=== PATIENT | female | born 1935 | race Caucasian/White ===

== ENCOUNTER 2020-04-30 10:52 | Observation (INO) | payer MEDICARE, BC ==
[~2020-04-30] VITALS: Ht 170 cm; Wt 54.0 kg
--- NOTE | 2020-04-30 12:09 | ED General ---
General Stated Complaint: CAN'T SWALLOW/TALK Source of Information: Family Exam Limitations: No Limitations History of Present Illness Date Seen by Provider: Apr 30, 2020 Time Seen by Provider: 12:08 Initial Comments To ER by private vehicle from home with reports of going to bed last night seemingly normal and awakening this morning refusing to talk or swallow her pills. No fevers or chills. She is on quarantine for exposure to her sister on 04/23. Sister was positive for Covid. According to the she is typically more alert, ambulates with a walker. He states that she seems to be leaning towards the left for the past several days. Timing/Duration: 12-24 Hours Severity: Moderate Associated Systoms: Denies Symptoms Allergies and Home Medications Allergies Coded Allergies: codeine (Verified Allergy, Unknown, 04/30/20) egg (Verified Allergy, Unknown, 04/30/20) Patient Home Medication List Home Medication List Reviewed: Yes Review of Systems Review of Systems Constitutional: see HPI EENTM: see HPI Respiratory: no symptoms reported Cardiovascular: no symptoms reported Genitourinary: no symptoms reported Musculoskeletal: no symptoms reported Skin: no symptoms reported Psychiatric/Neurological: No Symptoms Reported Hematologic/Lymphatic: No Symptoms Reported Immunological/Allergic: no symptoms reported Physical Exam Vital Signs Vital Signs - First Documented 04/30/20 11:40 Temp 36.6 Pulse 88 Resp 16 B/P (MAP) 185/100 (128) Pulse Ox 95 O2 Delivery Room Air Capillary Refill : Height, Weight, BMI Height: '" Weight: lbs. oz. kg; BMI Method: General Appearance: No Apparent Distress, WD/WN, Other (Alert but thin cachectic and frail. She moves all extremities when instructed to do so. She mumbles when asked a question.) Eyes: Bilateral Eye Normal Inspection, Bilateral Eye PERRL HEENT: PERRL/EOMI, TMs Normal Respiratory: No Accessory Muscle Use, No Respiratory Distress Cardiovascular: Regular Rate, Rhythm, Normal Peripheral Pulses Gastrointestinal: Normal Bowel Sounds, Non Tender, Soft Extremity: Normal Capillary Refill, Normal Inspection Neurologic/Psychiatric: Alert, Oriented x3 Skin: Normal Color, Warm/Dry Comments +1 pitting edema of the feet Focused Exam Lactate Level 04/30/20 11:50: Lactic Acid Level 0.99 Lactic Acid Level Laboratory Tests Test 04/30/20 11:50 Lactic Acid Level 0.99 MMOL/L (0.50-2.00) Progress/Results/Core Measures Suspected Sepsis SIRS Temperature: Pulse: Respiratory Rate: Laboratory Tests 04/30/20 11:50: White Blood Count 4.6 Blood Pressure / Mean: 04/30/20 11:50: Lactic Acid Level 0.99 Laboratory Tests 04/30/20 11:50: Creatinine 0.79, Platelet Count 265, Total Bilirubin 0.3 Results/Orders Lab Results Laboratory Tests Test 04/30/20 11:50 04/30/20 12:00 Range/Units White Blood Count 4.6 4.3-11.0 10^3/uL Red Blood Count 3.84 3.80-5.11 10^6/uL Hemoglobin 11.3 L 11.5-16.0 g/dL Hematocrit 36 35-52 % Mean Corpuscular Volume 94 80-99 fL Mean Corpuscular Hemoglobin 29 25-34 pg Mean Corpuscular Hemoglobin Concent 31 L 32-36 g/dL Red Cell Distribution Width 14.6 H 10.0-14.5 % Platelet Count 265 130-400 10^3/uL Mean Platelet Volume 10.2 9.0-12.2 fL Immature Granulocyte % (Auto) 0 % Neutrophils (%) (Auto) 65 42-75 % Lymphocytes (%) (Auto) 27 12-44 % Monocytes (%) (Auto) 7 0-12 % Eosinophils (%) (Auto) 1 0-10 % Basophils (%) (Auto) 0 0-10 % Neutrophils # (Auto) 3.0 1.8-7.8 10^3/uL Lymphocytes # (Auto) 1.2 1.0-4.0 10^3/uL Monocytes # (Auto) 0.3 0.0-1.0 10^3/uL Eosinophils # (Auto) 0.0 0.0-0.3 10^3/uL Basophils # (Auto) 0.0 0.0-0.1 10^3/uL Immature Granulocyte # (Auto) 0.0 0.0-0.1 10^3/uL Sodium Level 142 135-145 MMOL/L Potassium Level 4.8 3.6-5.0 MMOL/L Chloride Level 108 H 98-107 MMOL/L Carbon Dioxide Level 23 21-32 MMOL/L Anion Gap 11 5-14 MMOL/L Blood Urea Nitrogen 17 7-18 MG/DL Creatinine 0.79 0.60-1.30 MG/DL Estimat Glomerular Filtration Rate > 60 BUN/Creatinine Ratio 22 Glucose Level 106 H 70-105 MG/DL Lactic Acid Level 0.99 0.50-2.00 MMOL/L Calcium Level 9.1 8.5-10.1 MG/DL Corrected Calcium 9.1 8.5-10.1 MG/DL Total Bilirubin 0.3 0.1-1.0 MG/DL Aspartate Amino Transf (AST/SGOT) 21 5-34 U/L Alanine Aminotransferase (ALT/SGPT) 7 0-55 U/L Alkaline Phosphatase 85 40-136 U/L Total Protein 6.9 6.4-8.2 GM/DL Albumin 4.0 3.2-4.5 GM/DL Procalcitonin 0.06 <0.10 NG/ML Thyroid Stimulating Hormone (TSH) 0.44 0.35-4.94 UIU/ML Free Thyroxine 0.87 0.70-1.48 NG/DL Urine Color YELLOW Urine Clarity CLEAR Urine pH 7.0 5-9 Urine Specific [place] 1.010 L 1.016-1.022 Urine Protein NEGATIVE NEGATIVE Urine Glucose (UA) NEGATIVE NEGATIVE Urine Ketones TRACE H NEGATIVE Urine Nitrite NEGATIVE NEGATIVE Urine Bilirubin NEGATIVE NEGATIVE Urine Urobilinogen 0.2 < = 1.0 MG/DL Urine Leukocyte Esterase NEGATIVE NEGATIVE Urine RBC (Auto) NEGATIVE NEGATIVE Urine RBC NONE /HPF Urine WBC 2-5 /HPF Urine Squamous Epithelial Cells 0-2 /HPF Urine Crystals NONE /LPF Urine Bacteria MODERATE H /HPF Urine Casts NONE /LPF Urine Mucus NEGATIVE /LPF Urine Culture Indicated NO Coronavirus 2019 (RA) Positive H Negative Micro Results Microbiology 04/30/20 Influenza Types A,B Antigen (GABRIELA) - Final, Complete My Orders Orders - MARINE LOO LEGAL PROCESS SPECIALIST Cbc With Automated Diff (04/30/20 12:06) Comprehensive Metabolic Panel (04/30/20 12:06) Ct Head Wo (04/30/20 12:06) Chest 1 View, Ap/Pa Only (04/30/20 12:06) Ua Culture If Indicated (04/30/20 12:06) Garcia Cath (04/30/20 12:06) Influenza A And B Antigens (04/30/20 12:06) Covid 19 Inhouse Test (04/30/20 12:06) Ed Iv/Invasive Line Start (04/30/20 12:06) Blood Culture (04/30/20 12:09) Lactic Acid Analyzer (04/30/20 12:09) Procalcitonin (Pct) (04/30/20 12:09) Thyroid Stimulating Hormone (04/30/20 12:22) Free T4 (Free Thyroxine) (04/30/20 12:22) Vital Signs/I&O 04/30/20 11:40 Temp 36.6 Pulse 88 Resp 16 B/P (MAP) 185/100 (128) Pulse Ox 95 O2 Delivery Room Air Capillary Refill : Departure Communication (Admissions) Time/Spoke to Admitting Phy: 13:[address] Stevenson, we will admit, patient does not qualify for remdesivir, convalescent plasma or dexamethasone. She is admitted simply for being so weak and frail. Discussed CODE STATUS with the . Asked if he wanted CPR and ventilator done if her heart stops. He states only a CPR but no ventilator. I discussed with him that CPR was pointless without oxygenation and ventilation. He states he would like to make her full code then. Impression Primary Impression: General weakness Additional Impression: COVID-19 Disposition: 09 ADMITTED INPATIENT Condition: Stable Admissions Decision to Admit Reason: Admit from ER (General) Decision to Admit/Date: Apr 30, 2020 Time/Decision to Admit Time: 13:23 MARINE LOO APRN Apr 30, 2020 12:09
[2020-04-30 12:16] LABS: BILIRUBIN,URINE NEGATIVE (NEGATIVE); CLARITY,URINE CLEAR; COLOR,URINE YELLOW; GLUCOSE, URINE (UA) NEGATIVE (NEGATIVE); KETONES,URINE TRACE (NEGATIVE); LEUKOCYTE ESTERASE ,URINE NEGATIVE (NEGATIVE); NITRITE,URINE NEGATIVE (NEGATIVE); PROTEIN,URINE NEGATIVE (NEGATIVE)
[2020-04-30 12:16] LABS: BASOPHILS % (AUTO) 0 % (0-10); EOSINOPHILS % (AUTO) 1 % (0-10); HEMATOCRIT 36 % (35-52); HEMOGLOBIN 11.3 g/dL (11.5-16.0); LYMPHOCYTES # (AUTO) 1.2 10^3/uL (1.0-4.0); LYMPHOCYTES % (AUTO) 27 % (12-44); MEAN CORPUSCULAR HEMOGLOBIN 29 pg (25-34); MEAN CORPUSCULAR HGB CONC 31 g/dL (32-36); MEAN CORPUSCULAR VOLUME 94 fL (80-99); MEAN PLATELET VOLUME 10.2 fL (9.0-12.2); MONOCYTES # (AUTO) 0.3 10^3/uL (0.0-1.0); MONOCYTES % (AUTO) 7 % (0-12); NEUTROPHILS % (AUTO) 65 % (42-75); PLATELET COUNT 265 10^3/uL (130-400); WHITE BLOOD COUNT 4.6 10^3/uL (4.3-11.0)
[2020-04-30 12:23] LABS: BACTERIA,URINE MODERATE /HPF; SQUAMOUS EPITHELIAL CELL,UR 0-2 /HPF
[2020-04-30 12:24] LABS: CHLORIDE 108 MMOL/L (98-107); POTASSIUM 4.8 MMOL/L (3.6-5.0); SODIUM 142 MMOL/L (135-145)
[2020-04-30 12:25] LABS: CALCIUM 9.1 MG/DL (8.5-10.1)
[2020-04-30 12:26] LABS: GLUCOSE 106 MG/DL (70-105); TOTAL PROTEIN 6.9 GM/DL (6.4-8.2)
[2020-04-30 12:27] LABS: CARBON DIOXIDE 23 MMOL/L (21-32)
[2020-04-30 12:28] LABS: BILIRUBIN,TOTAL 0.3 MG/DL (0.1-1.0)
--- NOTE | 2020-04-30 12:28 | NUR ---
TALKED WITH PT'S WHO STATES SHE IS NORMALLY MORE ALERT ET HAS TO WALK WITH A WALKER AND HAS BEEN LEANING TOWARDS THE LEFT FOR SEVERAL DAYS.
[2020-04-30 12:29] LABS: ALKALINE PHOSPHATASE 85 U/L (40-136)
[2020-04-30 12:30] LABS: CREATININE SERUM 0.79 MG/DL (0.60-1.30); GFR ESTIMATED > 60
[2020-04-30 12:31] LABS: BUN/CREATININE RATIO 22
[2020-04-30 12:33] LABS: ALANINE AMINOTRANSFERASE 7 U/L (0-55)
--- NOTE | 2020-04-30 12:38 | Diagnostic Imaging Report ---
INDICATION: weakness COMPARISON: None. FINDINGS: Single frontal view of the chest demonstrates normal heart size and pulmonary vascularity. The lungs are well aerated and clear. Calcified granuloma is noted within the lateral right upper lung. No large pleural effusion or pneumothorax is seen. The visualized osseous structures show no acute abnormalities. There is calcified aortic atherosclerosis. Neurostimulator device is also noted. IMPRESSION: 1. No acute cardiopulmonary process. Dictated by: Dictated on workstation # [id number]
[2020-04-30 12:56] LABS: FREE T4 (FREE THYROXINE) 0.87 NG/DL (0.70-1.48)
--- NOTE | 2020-04-30 13:14 | Diagnostic Imaging Report ---
PROCEDURE: CT head without contrast. TECHNIQUE: Multiple contiguous axial images were obtained through the brain without the use of intravenous contrast. Auto Exposure Controls were utilized during the CT exam to meet ALARA standards for radiation dose reduction. DATE: April 30, 2020. COMPARISON: None. INDICATION: 84-year-old female, weakness. Cannot talk or swallow. The patient has Covid 19 infection. FINDINGS: There is mild proportional prominence of the ventricles and additional CSF spaces consistent with mild cerebral volume loss. There is a focal area of CSF-like attenuation in the right frontal lobe subcortical white matter on axial image 41 most likely relating to a remote prior lacunar infarct. There is no mass effect or midline shift. There is no acute intracranial hemorrhage. There is no abnormal extra-axial fluid collection. The visualized portions of the paranasal sinuses, mastoid air cells and middle ears are well aerated. IMPRESSION: 1. No CT apparent acute intracranial abnormality. Further evaluation with MRI brain may be of benefit as indicated clinically. 2. Mild cerebral volume loss with probable remote prior lacunar infarct involving the right frontal lobe subcortical white matter. Dictated by: Dictated on workstation # [id number]
--- NOTE | 2020-04-30 13:58 | NUR ---
ATTEMPT TO CALL REPORT ET ROOM HAS NOT BEEN CLEANED AND THEY WOULD LIKE TO WAIT FOR REPORT.
--- NOTE | 2020-04-30 14:38 | NUR ---
aGston wang in [facility] - 04/30/20 at 1438 by SIM RESTING IN BED.
--- NOTE | 2020-04-30 14:45 | NUR ---
RESTING IN BED WITH EYES OPEN. MORE TALKATIVE ET ASKING ABOUT HER . DENIES NEEDS AT THIS TIME.
[2020-04-30] MEDS ORDERED: CATHETER FLUSH 10 ML SYR IV PRN (15:45)
[2020-04-30] MEDS: ENOXAPARIN 30 MG/0.3 ML (LOVENOX) SYR SC SCH (16:14)
[2020-04-30] MEDS: LACTATED RINGERS 1,000 ML IV SCH (16:14)
[2020-04-30 16:55] VITALS: BP 204/99
[2020-04-30] MEDS ORDERED: hydrALAZINE (APESOLINE) 20 MG/ML VIAL IV NR (17:00)
[2020-04-30] MEDS ORDERED: RASA1TAB4 PO (17:38)
[2020-04-30] MEDS ORDERED: SIMV20TA26 PO (17:53)
[2020-04-30] MEDS ORDERED: ACHD5005 PO (17:53)
[2020-04-30] MEDS ORDERED: CARB1TAB22 PO (17:53)
[2020-04-30] MEDS ORDERED: BUME1TAB8 PO (17:53)
[2020-04-30] MEDS ORDERED: GLYC1.5T4 PO (17:53)
[2020-04-30] MEDS ORDERED: FLUO20TA28 PO (17:53)
[2020-04-30] MEDS ORDERED: TRAM50TA3 PO (17:53)
[2020-04-30] MEDS ORDERED: LISI10TA2 PO (17:53)
[2020-04-30] MEDS ORDERED: ROPI3TAB4 PO (17:53)
[2020-04-30] MEDS ORDERED: TOPI25TA10 PO (17:53)
[2020-04-30 20:30] VITALS: BP 179/83
[2020-05-01] VITALS (8 sets, daily range): BP systolic 157–195; BP diastolic 72–91
--- NOTE | 2020-05-01 00:06 | NUR ---
Dr. Hernandez notified of bp at 195/90 with hr 96. New order rec to give Hydralazine 10mg IV x 1 dose now and then monitor - to address in AM.
[2020-05-01] MEDS ORDERED: hydrALAZINE (APESOLINE) 20 MG/ML VIAL IV ONE (00:15)
[2020-05-01] MEDS: LACTATED RINGERS 1,000 ML IV SCH ×3 (02:08→21:19)
[2020-05-01 05:43] LABS: BASOPHILS % (AUTO) 0 % (0-10); EOSINOPHILS % (AUTO) 0 % (0-10); HEMATOCRIT 34 % (35-52); LYMPHOCYTES # (AUTO) 0.7 10^3/uL (1.0-4.0); LYMPHOCYTES % (AUTO) 17 % (12-44); MEAN CORPUSCULAR HEMOGLOBIN 30 pg (25-34); MEAN CORPUSCULAR HGB CONC 33 g/dL (32-36); MEAN CORPUSCULAR VOLUME 91 fL (80-99); MEAN PLATELET VOLUME 10.1 fL (9.0-12.2); MONOCYTES # (AUTO) 0.3 10^3/uL (0.0-1.0); MONOCYTES % (AUTO) 8 % (0-12); NEUTROPHILS # (AUTO) 3.2 10^3/uL (1.8-7.8); NEUTROPHILS % (AUTO) 76 % (42-75); PLATELET COUNT 243 10^3/uL (130-400); WHITE BLOOD COUNT 4.2 10^3/uL (4.3-11.0)
[2020-05-01 05:54] LABS: ALBUMIN 3.8 GM/DL (3.2-4.5)
[2020-05-01 05:55] LABS: CHLORIDE 109 MMOL/L (98-107); POTASSIUM 3.8 MMOL/L (3.6-5.0); SODIUM 141 MMOL/L (135-145)
[2020-05-01 05:56] LABS: CALCIUM 8.8 MG/DL (8.5-10.1)
[2020-05-01 05:57] LABS: GLUCOSE 112 MG/DL (70-105); TOTAL PROTEIN 6.2 GM/DL (6.4-8.2)
[2020-05-01 05:58] LABS: CARBON DIOXIDE 21 MMOL/L (21-32)
[2020-05-01 05:59] LABS: BILIRUBIN,TOTAL 0.4 MG/DL (0.1-1.0)
[2020-05-01 06:00] LABS: ALKALINE PHOSPHATASE 84 U/L (40-136)
[2020-05-01 06:01] LABS: GFR ESTIMATED > 60
[2020-05-01 06:02] LABS: BUN/CREATININE RATIO 19
[2020-05-01 06:04] LABS: ALANINE AMINOTRANSFERASE 14 U/L (0-55)
[2020-05-01] MEDS ORDERED: lisINopril 10 MG (PRINIVIL) TABLET ONE (11:21)
[2020-05-01] MEDS: lisINopril 10 MG (PRINIVIL) TABLET PO SCH (11:25)
[2020-05-01] MEDS ORDERED: RASA0.5T PO (11:42)
[2020-05-01] MEDS ORDERED: GLYCOPYRROLATE PO (11:42)
[2020-05-01] MEDS ORDERED: AMAN100C18 PO (11:42)
[2020-05-01] MEDS ORDERED: POLY17PO6 PO (11:44)
[2020-05-01] MEDS ORDERED: PYRI50TA PO (11:44)
[2020-05-01] MEDS ORDERED: LOPE2CAP PO (11:44)
[2020-05-01] MEDS ORDERED: CYAN25003 SL (11:44)
--- NOTE | 2020-05-01 11:47 | NUR ---
UNABLE TO SPEAK WITH THE PT- I DID CALL HER (DORA) AND GOT A MEDICATION LIST FROM [facility] TO COMPLETE THE MED REC THERE WAS A MEDICATION LIST ON THE PTS CHART (HOWEVER IT IS NOT UP TO DATE) AND MOST OF HER HOME MEDS ARE IN HER ROOM ALSO. FLUOXETINE 20MG AND BUMETANIDE 1MG ARE NOT ON THE PTS MED LIST HOWEVER SHE IS TAKING AMANTADINE 100MG WAS LAST FILLED 02-24-2020 #60/30DS- WHEN I SPOKE WITH DORA HE LET ME KNOW THE PT IS PRESCRIBED THIS MED AND SHE RECENTLY RAN OUT OF PILLS- AND DUE TO QUARANTINE THEY HAVE NOT BEEN ABLE TO [facility] DIRECTOR A REFILL FROM THE PHARMACY THE MED LIST HAS THE FOLLOWING OTC'S LISTED BUT DORA THOUGHT THE PT MAY HAVE QUIT TAKING THEM WHEN GOT SICK: LOPERAMIDE 2MG MIRALAX VIT B-12 VIT B-6 Addendum: 05/01/20 at 1159 by HEIDI AVELAR CPhT THE FOLLOWING ARE FILL DATES FROM [facility]: 11-18-2019 TRAMADOL 50MG #180 01-17-2020 SIMVASTATIN 20MG #90/90DS 02-17-2020 LISINOPRIL 10MG #90/90DS 02-24-2020 AMANTADINE 100MG #60/30DS- PAST DUE FILL DATE IS ON THE MED REC 03-02-2020 BUMETANIDE 1MG #30/30DS- PAST DUE FILL DATE IS ON THE MED REC 03-09-2020 HYDROCODONE/APAP 5/325MG #120 03-15-2020 ROPINIROLE 3MG #90/30DS 04-14-2020 FLUOXETINE 20MG #30/30DS 04-14-2020 TOPIRAMATE 25MG #30/30DS 04-14-2020 RASAGILINE 0.5MG #90/90DS 04-14-2020 GLYCOPYRROLATE 1MG #60/30DS 04-14-2020 CARB/LEVO 25/250MG #240/30DS
--- NOTE | 2020-05-01 12:20 | History & Physical ---
HPI History of Present Illness: 84 yo F that presented with increasing weakness and confusion found to have COVID-19. states that at baseline she walks, talks and feeds herself. He noticed that she was not wanting to eat or get out of bed and started to get concerned. She woke up and did not want to take her pills. She did have a recent exposure with her sister and is currently on quarantine. No fever or chills. Normal breathing. Will shake head to answer questions but will not verbalize answers. Source: patient, spouse Exam Limitations: clinical condition Date seen by provider: May 01, 2020 Time Seen by Provider: 10:15 Attending Physician Scotty Trevizo MD PCP [facility] Consult Date of Admission Apr 30, 2020 at 12:59 Home Medications Home Medications Reviewed patient Home Medication Reconciliation performed by pharmacy medication reconciliations prepress technician and/or nursing. Patients Allergies have been reviewed. Allergies Coded Allergies: codeine (Verified Allergy, Unknown, 04/30/20) egg (Verified Allergy, Unknown, 04/30/20) [id number] Hx Patient Social History Recent Foreign Travel: No Contact w/other who traveled: No Recent Infectious Disease Expo: No Past Medical History HTN Nathan's Chronic pain Review of Systems ([facility]) Constitutional: no symptoms reported; No chills, No fever EENTM: no symptoms reported; No nose congestion, No nose pain, No throat pain Respiratory: no symptoms reported; No cough, No dyspnea on exertion, No short of breath Cardiovascular: no symptoms reported; No chest pain, No edema Gastrointestinal: no symptoms reported; No abdominal pain, No constipation, No nausea, No vomiting Genitourinary: no symptoms reported; No dysuria, No frequency, No hematuria : No Musculoskeletal: no symptoms reported; No back pain, No joint pain, No muscle pain Skin: no symptoms reported Psychiatric/Neurological: No Symptoms Reported Reviewed Test Results Reviewed Test Results Lab Laboratory Tests Test 05/01/20 05:14 05/01/20 05:21 Range/Units Sodium Level 141 135-145 MMOL/L Potassium Level 3.8 3.6-5.0 MMOL/L Chloride Level 109 H 98-107 MMOL/L Carbon Dioxide Level 21 21-32 MMOL/L Anion Gap 11 5-14 MMOL/L Blood Urea Nitrogen 13 7-18 MG/DL Creatinine 0.70 0.60-1.30 MG/DL Estimat Glomerular Filtration Rate > 60 BUN/Creatinine Ratio 19 Glucose Level 112 H 70-105 MG/DL Calcium Level 8.8 8.5-10.1 MG/DL Corrected Calcium 9.0 8.5-10.1 MG/DL Total Bilirubin 0.4 0.1-1.0 MG/DL Aspartate Amino Transf (AST/SGOT) 15 5-34 U/L Alanine Aminotransferase (ALT/SGPT) 14 0-55 U/L Alkaline Phosphatase 84 40-136 U/L Total Protein 6.2 L 6.4-8.2 GM/DL Albumin 3.8 3.2-4.5 GM/DL White Blood Count 4.2 L 4.3-11.0 10^3/uL Red Blood Count 3.68 L 3.80-5.11 10^6/uL Hemoglobin 11.0 L 11.5-16.0 g/dL Hematocrit 34 L 35-52 % Mean Corpuscular Volume 91 80-99 fL Mean Corpuscular Hemoglobin 30 25-34 pg Mean Corpuscular Hemoglobin Concent 33 32-36 g/dL Red Cell Distribution Width 14.0 10.0-14.5 % Platelet Count 243 130-400 10^3/uL Mean Platelet Volume 10.1 9.0-12.2 fL Immature Granulocyte % (Auto) 0 % Neutrophils (%) (Auto) 76 H 42-75 % Lymphocytes (%) (Auto) 17 12-44 % Monocytes (%) (Auto) 8 0-12 % Eosinophils (%) (Auto) 0 0-10 % Basophils (%) (Auto) 0 0-10 % Neutrophils # (Auto) 3.2 1.8-7.8 10^3/uL Lymphocytes # (Auto) 0.7 L 1.0-4.0 10^3/uL Monocytes # (Auto) 0.3 0.0-1.0 10^3/uL Eosinophils # (Auto) 0.0 0.0-0.3 10^3/uL Basophils # (Auto) 0.0 0.0-0.1 10^3/uL Immature Granulocyte # (Auto) 0.0 0.0-0.1 10^3/uL Physical Exam-([facility]) Physical Exam Vital Signs VS - Last 72 Hours, by Label 04/30/20 04/30/20 04/30/20 04/30/20 11:40 15:18 16:00 16:55 Temp 36.6 36.5 Pulse 88 87 91 Resp 16 16 16 B/P (MAP) 185/100 (128) 141/29 204/99 Pulse Ox 95 97 98 98 O2 Delivery Room Air Room Air Room Air Room Air 04/30/20 04/30/20 05/01/20 05/01/20 20:00 20:30 00:08 02:16 Temp 36.6 36.5 36.0 Pulse 105 94 100 Resp 18 18 18 B/P (MAP) 179/83 (115) 195/90 (125) 157/72 (100) Pulse Ox 97 97 97 96 O2 Delivery Room Air Room Air Room Air Room Air 05/01/20 05/01/20 05/01/20 05/01/20 04:00 07:47 08:30 11:13 Temp 36.0 36.5 36.6 Pulse 100 99 88 Resp 18 16 16 B/P (MAP) 187/77 (113) 182/86 (118) 193/91 (125) Pulse Ox 99 97 98 O2 Delivery Room Air Room Air Room Air Room Air Capillary Refill : Less Than 3 Seconds General Appearance: no apparent distress, cachetic, thin Neck: non-tender, full range of motion, supple Respiratory: chest non-tender, lungs clear, normal breath sounds, no respiratory distress, no accessory muscle use Cardiovascular: normal peripheral pulses, regular rate, rhythm, no murmur Gastrointestinal: non tender, soft Back: other (severe kyphosis and sciolosis) Extremities: no pedal edema, no calf tenderness, normal capillary refill Neurologic/Psychiatric: alert Skin: normal color, warm/dry Lymphatic: no adenopathy Assessment/Plan Assessment/Plan Admission Status: Observation (1) General weakness Status: Acute Assessment & Plan: - Low appetite, continue to monitor intake, HDS (2) COVID-19 Status: Acute (3) Hypertension Status: Chronic Assessment & Plan: - Restart home meds Qualifiers: Qualified Codes: I10 - Essential (primary) hypertension Clinical Quality Measures DVT/VTE Risk/Contraindication: Risk Factor Score Per Nursin RFS Level Per Nursing on Admit: 2=Moderate SCOTTY TREVIZO MD May 01, 2020 12:20
[2020-05-01] MEDS: rOPINIRole 1 MG (REQUIP) TABLET PO SCH ×2 (13:20→21:18)
[2020-05-01] MEDS: SINEMET 25/250 (CARBIDOPA/LEVODOPA) TAB PO SCH ×3 (13:34→21:19)
--- NOTE | 2020-05-01 13:39 | NUR ---
CM/SS visited with patient for social service consult. CM/SS attempted to contact the patient via room phone. However, no answer. CM/SS contacted the patient's Garcia to discuss discharge planning. He was pleasant and willing. Garcia is adamant that he would like the patient to return home with him and his daughter. His daughter is quarantined at the house with them. CM/SS discussed safety with the patient's but he feels that it would be safe for her to return home. Home: At baseline, the patient had "limited activity" according to Garcia. He states that she would be able to get up with a walker; however, she would let go of the walker and fall. The patient usually just stays in her lift chair. The patient needs assistance with bathing but Garcia reports she can brush her hair, brush teeth, and perform swapna care. Equipment: The patient has a lift chair, shower chair, walker, and toilet seat riser with grab bars. Home Health: Garcia reports that the patient had [facility] in the past and would like to use them again. CM/SS called and made a referral. Informed them that this sw is unsure of discharge date. Supports: The patient's Garcia and Daughter. CM/SS will continue to follow for discharge planning.
--- NOTE | 2020-05-01 14:23 | NUR ---
"RD ASSESSMENT PMHx: HTN; PT INTERACTION: Received dietary consult for MST score. Note pt currently in COVID isolation, per chart review. Note all diet information for consult is per Adrianna RN, or per chart review. Adrianna states current appetite appears poor. Note avg PO intake 25-50% x3meal, per chart review. Adrianna states no issues with nausea, vomiting, constipation, or diarrhea that she is aware of, and according to the pt, their last BM was 04/30. Not pt not currently on bowel regimen per chart review. Note unable to determine recent wt hx, per chart review. Note unable to complete visual assessment d/t isolation precautions. Note BMI of 18.7 (Underweight BMI for age). Given PO intake, no wt hx, and no visual assessment, criteria for malnutrition status per ASPEN guidelines cannot be determined. Est. kcal needs: 6203-4027 kcal | 30-35 kcal/kg Est. Pro needs: 54-64 g Pro | 1.0-1.2 g Pro/kg PES STATEMENT: Inadequate oral intake (NI-2.1) related to loss of appetite, as evidenced by chart review, communication with RN, and avg PO intake 25-50% x1d. INTERVENTION: Continue with current diet order of DYS3 Advanced/Ground Meat diet. Continue with current supplementation order of Ensure Enlive with meals TID, for increased kcal intake. Provides 350 kcal and 20 g Pro per serving. Will continue to follow and reassess as pt needs, intake, and status change. Kevin LOMBARDI, MS RD LD [phone] cell"
[2020-05-01] MEDS: RASAGILINE 0.5 MG PO SCH (15:36)
[2020-05-01] MEDS: ENOXAPARIN 30 MG/0.3 ML (LOVENOX) SYR SC SCH (16:58)
[2020-05-01] MEDS: ACETAMINOPHEN 325 MG TABLET PO PRN (21:17)
[2020-05-01] MEDS: AMANTADINE 100 MG (SYMMETREL) CAP PO SCH (21:20)
[2020-05-02 03:28] VITALS: BP 177/86
[2020-05-02 05:57] LABS: BASOPHILS % (AUTO) 0 % (0-10); EOSINOPHILS % (AUTO) 1 % (0-10); HEMATOCRIT 31 % (35-52); LYMPHOCYTES % (AUTO) 35 % (12-44); MEAN CORPUSCULAR HEMOGLOBIN 29 pg (25-34); MEAN CORPUSCULAR HGB CONC 32 g/dL (32-36); MEAN CORPUSCULAR VOLUME 91 fL (80-99); MEAN PLATELET VOLUME 9.6 fL (9.0-12.2); MONOCYTES # (AUTO) 0.3 10^3/uL (0.0-1.0); MONOCYTES % (AUTO) 11 % (0-12); NEUTROPHILS # (AUTO) 1.5 10^3/uL (1.8-7.8); NEUTROPHILS % (AUTO) 54 % (42-75); PLATELET COUNT 228 10^3/uL (130-400); WHITE BLOOD COUNT 2.8 10^3/uL (4.3-11.0)
[2020-05-02 06:00] LABS: CHLORIDE 109 MMOL/L (98-107); POTASSIUM 3.9 MMOL/L (3.6-5.0); SODIUM 140 MMOL/L (135-145)
[2020-05-02 06:01] LABS: CALCIUM 8.5 MG/DL (8.5-10.1); GLUCOSE 88 MG/DL (70-105)
[2020-05-02 06:03] LABS: CARBON DIOXIDE 22 MMOL/L (21-32)
[2020-05-02 06:05] LABS: CREATININE SERUM 0.61 MG/DL (0.60-1.30); GFR ESTIMATED > 60
[2020-05-02 06:06] LABS: BUN/CREATININE RATIO 26
--- NOTE | 2020-05-02 06:08 | Progress Note - Hospitalist ---
Subjective HPI/CC On Admission Date Seen by Provider: May 02, 2020 Time Seen by Provider: 11:00 Subjective/Events-last exam Patient very frail and weak HLIVF Patient appears end stage status Reviewed meds and labs PT OT IRF referrals [id number] and subtle confusion Garcia cath Review of Systems General: Fatigue, Malaise Focused Exam Lactate Level 04/30/20 11:50: Lactic Acid Level 0.99 Objective Exam Vital Signs Vital Signs Date Time Temp Pulse Resp B/P (MAP) Pulse Ox O2 Delivery O2 Flow Rate FiO2 05/02/20 23:30 36.2 77 16 150/76 (100) 97 Room Air Capillary Refill : Less Than 3 Seconds General Appearance: No Apparent Distress, Chronically ill, Cachetic, Thin Respiratory: Chest Non Tender, Lungs Clear, Normal Breath Sounds, No Accessory Muscle Use, No Respiratory Distress Cardiovascular: Regular Rate, Rhythm, No Edema, No Gallop, No JVD, No Murmur, Normal Peripheral Pulses Neurologic/Psychiatric: Alert, Oriented x3, No Motor/Sensory Deficits, Depressed Affect, Disoriented Results/Procedures Lab Patient resulted labs reviewed. Assessment/Plan Assessment and Plan Assess & Plan/Chief Complaint Assessment: COVID-19 Weakness Cachexia Frail status Confusion Neutropenia Plan: Monitor O2 Increase PO intake Ambulate PT OT IRF Clinical Quality Measures DVT/VTE Risk/Contraindication: Risk Factor Score Per Nursin RFS Level Per Nursing on Admit: 2=Moderate BRENDA DE LA VEGA DO May 02, 2020 06:08
[2020-05-02 07:47] VITALS: BP 162/86
[2020-05-02] MEDS: LACTATED RINGERS 1,000 ML IV SCH ×2 (08:28→17:15)
[2020-05-02] MEDS: SINEMET 25/250 (CARBIDOPA/LEVODOPA) TAB PO SCH ×4 (08:30→20:58)
[2020-05-02] MEDS: BUMETANIDE 1 MG (BUMEX) TAB PO SCH (08:30)
[2020-05-02] MEDS: RASAGILINE 0.5 MG PO SCH (08:30)
[2020-05-02] MEDS: AMANTADINE 100 MG (SYMMETREL) CAP PO SCH ×2 (08:30→20:58)
[2020-05-02] MEDS: rOPINIRole 1 MG (REQUIP) TABLET PO SCH ×3 (08:30→20:59)
[2020-05-02] MEDS: lisINopril 10 MG (PRINIVIL) TABLET PO SCH (08:35)
[2020-05-02] MEDS ORDERED: RASAGILINE MESYLATE 0.5 MG PO SCH (09:00)
--- NOTE | 2020-05-02 13:01 | Physical Therapy Evaluation ---
PT Evaluation-General Medical Diagnosis Admission Date Apr 30, 2020 at 12:59 Medical Diagnosis: weakness, confusion, COVID+ Onset Date: Apr 30, 2020 Therapy Diagnosis Therapy Diagnosis: debility, general weakness Precautions Precautions/Isolations: Contact Isolation, Aspiration, Droplet Isolation Weight Bear Status Right Lower Extremity: Right Full Weight Bearing Left Lower Extremity: Left Full Weight Bearing Referral Physician: Dr. Hernandez Reason for Referral: Evaluation/Treatment Medical History Pertinent Medical History: HTN, Parkinson's Additional Medical History chronic pain Current History Pt. presented with increasing weakness, confusion, COVID+ Reviewed History: Yes Social History Home: Single Level Current Living Status: Spouse Prior Prior Level of Function SCALE: Activities may be completed with or without assistive devices. 1-Lpdqbjcegf-xfdeffx completes the activity by him/herself with no assistance from a helper. 5-Set-up or Clean-up Assistance-helper sets up or cleans up; patient completes activity. [place] assists only prior to or following the activity. 4-Supervision or Touching Assistance-helper provides verbal cues and/or touching/steadying and/or contact guard assistance as patient completes activity. Assistance may be provided throughout the activity or intermittently. 3-Partial/Moderate Assistance-helper does LESS THAN HALF the effort. [place] lifts, holds or supports trunk or limbs, but provides less than half the effort. 2-Substantial/Maximal Assistance-helper does MORE THAN HALF the effort. [place] lifts or holds trunk or limbs and provides more than half the effort. 0-Vptygfvhm-unpwmm does ALL the effort. Patient does none of the effort to complete the activity. Or, the assistance of 2 or more helpers is required for the patient to complete the activity. If activity was not attempted, code reason: 7-Patient Refused. 9-Not Applicable-not attempted and the patient did not perform the activity be fore the current illness, exacerbation or injury. 10-Not Attempted due to Environmental Limitations-(lack of equipment, weather restraints, etc.). 88-Not Attempted due to Medical Conditions or Safety Concerns. Bed Mobility: 6 Transfers (B,C,W/C): 6 Gait: 6 Indoor Mobility (Ambulation): Independent Prior Devices Use: Motorized wheelchair, Walker pt. states she mostly walks around the home with a walker but does have a power chair PT Evaluation-Current Subjective Pt. in bed with nurse aide present for feeding, agrees to sit up in chair. Pt/Family Goals home with spouse Objective Patient Orientation: Person, Confused ROM/Strength ROM Upper Extremities Decreased ROM Lower Extremities WFL Strength Upper Extremities Decreased Strength Lower Extremities Grossly 3+/5 Integumentary/Posture Integumentary see nursing notes Bowel Incontinence: No Bladder Incontinence: Yes Posture kyphotic, narrow KENNETH Neuromuscular (Tone, Coordination, Reflexes) diminished Sensory Vision: Functional Hearing: Functional Sensation Right Upper Extremit: Intact Sensation Left Upper Extremity: Intact Sensation Right Lower Extremit: Intact Sensation Left Lower Extremity: Intact Transfers Sit to Lying (QC): 4 Sit to Stand (QC): 3 Chair/Qlx-tl-Palas Xfer(QC): 3 Gait Does the Patient Walk?: Yes Mode of Locomotion: Walk Anticipated Mode of Locomotion: Walk Distance: 4 ft Gait Assistive Device: FWW Comments/Gait Description Parkinson's gait with narrow, shuffled steps, kyphotic posture Balance Sitting Static: Fair Sitting Dynamic: Fair Standing Static: Poor Standing Dynamic: Poor Assessment/Needs Pt. is an 84 y.o. female with decreased mobility and weakness. Pt. is currently min-mod A with with transfers and was able to ambulate from bed to chair but with poor balance. Pt. would benefit from skilled PT to improve mobility and strength to possibly return home with spouse vs. retirement placement. Rehab Potential: Fair PT Alf Goals Rubberizing Mechanic Goals PT Rubberizing Mechanic Goals Time Frame: May 16, 2020 Roll Left & Right (QC): 6 Sit to Lying (QC): 6 Lying-Sitting on Side/Bed(QC): 6 Sit to Stand (QC): 4 Chair/Fyb-xe-Equyn Xfer(QC): 4 Walk 10 feet (QC): 4 PT Plan Problem List Problem List: Activity Tolerance, Functional Strength, Safety, Balance, Gait, Transfer, Bed Mobility, ROM Treatment/Plan Treatment Plan: Continue Plan of Care Treatment Plan: Bed Mobility, Concurrent Therapy, Education, Functional Activity Merary, Functional Strength, Gait, Safety, Therapeutic Exercise, Transfers Treatment Duration: May 16, 2020 Frequency: 6 times per week Estimated Hrs Per Day: .25 hour per day Patient and/or Family Agrees t: Yes Time/GCodes Time In: 1210 Time Out: 1229 Total Billed Treatment Time: 19 Total Billed Treatment 1, LEROY 19' SPIKE TOMPKINS PT May 02, 2020 13:01
[2020-05-02 16:15] VITALS: BP 160/77
[2020-05-02] MEDS: ENOXAPARIN 30 MG/0.3 ML (LOVENOX) SYR SC SCH (17:14)
[2020-05-02] MEDS: ACETAMINOPHEN 325 MG TABLET PO PRN (20:02)
[2020-05-02 23:30] VITALS: BP 150/76
[2020-05-03] MEDS: ACETAMINOPHEN 325 MG TABLET PO PRN ×2 (06:32→21:23)
[2020-05-03 07:26] LABS: BASOPHILS % (AUTO) 0 % (0-10); EOSINOPHILS % (AUTO) 1 % (0-10); HEMATOCRIT 33 % (35-52); HEMOGLOBIN 10.6 g/dL (11.5-16.0); LYMPHOCYTES # (AUTO) 0.7 10^3/uL (1.0-4.0); LYMPHOCYTES % (AUTO) 20 % (12-44); MEAN CORPUSCULAR HEMOGLOBIN 29 pg (25-34); MEAN CORPUSCULAR HGB CONC 33 g/dL (32-36); MEAN CORPUSCULAR VOLUME 90 fL (80-99); MEAN PLATELET VOLUME 9.7 fL (9.0-12.2); MONOCYTES # (AUTO) 0.3 10^3/uL (0.0-1.0); MONOCYTES % (AUTO) 8 % (0-12); NEUTROPHILS # (AUTO) 2.6 10^3/uL (1.8-7.8); NEUTROPHILS % (AUTO) 71 % (42-75); PLATELET COUNT 220 10^3/uL (130-400); WHITE BLOOD COUNT 3.7 10^3/uL (4.3-11.0)
[2020-05-03 07:47] LABS: ALANINE AMINOTRANSFERASE 11 U/L (0-55); ALBUMIN 3.5 GM/DL (3.2-4.5); ALKALINE PHOSPHATASE 82 U/L (40-136); BILIRUBIN,TOTAL 0.3 MG/DL (0.1-1.0); BUN/CREATININE RATIO 22; CALCIUM 8.6 MG/DL (8.5-10.1); CARBON DIOXIDE 24 MMOL/L (21-32); CHLORIDE 106 MMOL/L (98-107); CREATININE SERUM 0.65 MG/DL (0.60-1.30); GFR ESTIMATED > 60; GLUCOSE 99 MG/DL (70-105); POTASSIUM 3.6 MMOL/L (3.6-5.0); SODIUM 139 MMOL/L (135-145); TOTAL PROTEIN 5.9 GM/DL (6.4-8.2)
[2020-05-03 08:00] VITALS: BP 188/87
[2020-05-03] MEDS: RASAGILINE 0.5 MG PO SCH (08:20)
[2020-05-03] MEDS: lisINopril 10 MG (PRINIVIL) TABLET PO SCH (08:20)
[2020-05-03] MEDS: rOPINIRole 1 MG (REQUIP) TABLET PO SCH ×3 (08:21→20:17)
[2020-05-03] MEDS: AMANTADINE 100 MG (SYMMETREL) CAP PO SCH ×2 (08:21→20:21)
[2020-05-03] MEDS: SINEMET 25/250 (CARBIDOPA/LEVODOPA) TAB PO SCH ×4 (08:21→20:17)
[2020-05-03] MEDS: BUMETANIDE 1 MG (BUMEX) TAB PO SCH (08:21)
--- NOTE | 2020-05-03 12:16 | Progress Note - Hospitalist ---
Subjective HPI/CC On Admission Date Seen by Provider: May 03, 2020 Time Seen by Provider: 11:00 Subjective/Events-last exam Improved overall Sitting in chair Walking a bit with walker Cath out Eating a bit more DC tomorrow with HH Appears to be a hospice candidate Review of Systems General: Fatigue, Malaise Pulmonary: Dyspnea Objective Exam Vital Signs Vital Signs Date Time Temp Pulse Resp B/P (MAP) Pulse Ox O2 Delivery O2 Flow Rate FiO2 05/03/20 15:52 36.2 86 18 178/81 (113) 97 Room Air Capillary Refill : Less Than 3 Seconds General Appearance: No Apparent Distress, WD/WN, Chronically ill, Cachetic, Thin Respiratory: Lungs Clear Cardiovascular: Regular Rate, Rhythm Neurologic/Psychiatric: Alert, Depressed Affect, Disoriented Results/Procedures Lab Laboratory Tests 05/03/20 07:10 Patient resulted labs reviewed. Assessment/Plan Assessment and Plan Assess & Plan/Chief Complaint Assessment: COVID-19 Weakness Cachexia Frail status Confusion Neutropenia Plan: Monitor O2 Increase PO intake Ambulate PT OT IRF 05/03/20: PT OT DC tomorrow with Clinical Quality Measures DVT/VTE Risk/Contraindication: Risk Factor Score Per Nursin RFS Level Per Nursing on Admit: 2=Moderate BRENDA DE LA VEGA DO May 03, 2020 12:16
[2020-05-03 15:52] VITALS: BP 178/81
[2020-05-03] MEDS: ENOXAPARIN 30 MG/0.3 ML (LOVENOX) SYR SC SCH (16:25)
[2020-05-03 23:29] VITALS: BP 169/82
[2020-05-04 06:39] LABS: BASOPHILS % (AUTO) 0 % (0-10); EOSINOPHILS % (AUTO) 0 % (0-10); HEMATOCRIT 33 % (35-52); HEMOGLOBIN 10.8 g/dL (11.5-16.0); LYMPHOCYTES % (AUTO) 13 % (12-44); MEAN CORPUSCULAR HEMOGLOBIN 29 pg (25-34); MEAN CORPUSCULAR HGB CONC 32 g/dL (32-36); MEAN CORPUSCULAR VOLUME 90 fL (80-99); MEAN PLATELET VOLUME 10.4 fL (9.0-12.2); MONOCYTES # (AUTO) 0.3 10^3/uL (0.0-1.0); MONOCYTES % (AUTO) 4 % (0-12); NEUTROPHILS # (AUTO) 6.4 10^3/uL (1.8-7.8); NEUTROPHILS % (AUTO) 82 % (42-75); PLATELET COUNT 251 10^3/uL (130-400); WHITE BLOOD COUNT 7.8 10^3/uL (4.3-11.0)
[2020-05-04 06:49] LABS: ALBUMIN 3.6 GM/DL (3.2-4.5); CHLORIDE 104 MMOL/L (98-107); SODIUM 138 MMOL/L (135-145)
[2020-05-04 06:51] LABS: CALCIUM 8.7 MG/DL (8.5-10.1)
[2020-05-04 06:52] LABS: GLUCOSE 97 MG/DL (70-105); TOTAL PROTEIN 6.1 GM/DL (6.4-8.2)
[2020-05-04 06:53] LABS: CARBON DIOXIDE 24 MMOL/L (21-32)
[2020-05-04 06:54] LABS: BILIRUBIN,TOTAL 0.3 MG/DL (0.1-1.0)
[2020-05-04 06:55] LABS: ALKALINE PHOSPHATASE 87 U/L (40-136); CREATININE SERUM 0.75 MG/DL (0.60-1.30); GFR ESTIMATED > 60
[2020-05-04 06:56] LABS: BUN/CREATININE RATIO 25
[2020-05-04 06:58] LABS: ALANINE AMINOTRANSFERASE 11 U/L (0-55)
[2020-05-04] MEDS: SINEMET 25/250 (CARBIDOPA/LEVODOPA) TAB PO SCH (07:57)
[2020-05-04] MEDS: rOPINIRole 1 MG (REQUIP) TABLET PO SCH (07:58)
[2020-05-04] MEDS: BUMETANIDE 1 MG (BUMEX) TAB PO SCH (07:58)
[2020-05-04] MEDS: lisINopril 10 MG (PRINIVIL) TABLET PO SCH (07:58)
[2020-05-04 08:00] VITALS: BP 155/77
--- NOTE | 2020-05-04 08:50 | Discharge Summary ---
Discharge Summary Hospital Course Was the Problem List Reviewed?: Yes Problems/Dx: (1) Parkinson disease (2) General weakness Status: Acute (3) COVID-19 Status: Acute (4) Hypertension Status: Chronic Qualifiers: Qualified Codes: I10 - Essential (primary) hypertension Hospital Course Date of Admission: Apr 30, 2020 at 12:59 Admission Diagnosis : Family Physician/Provider: Gilberto Goins - [facility] Date of Discharge: 05/04/20 Discharge Diagnosis: COVID-19, weakness, PD Hospital Course: Hospital course: Pt had a lengthy hospital course, she was admitted for weakness from Covid, no hypoxia. She was placed on gentle IV fluids, she did recover well, severe Parkinsons placed her with severe cachexia and chronic debility but she actually did very well and required no intervention for Covid-19, she was able to participate in PT and OT and use walker and she will have home health at discharge. Labs and Pending Lab Test: Laboratory Tests 05/04/20 06:00: White Blood Count 7.8, Red Blood Count 3.70L, Hemoglobin 10.8L, Hematocrit 33L, Mean Corpuscular Volume 90, Mean Corpuscular Hemoglobin 29, Mean Corpuscular Hemoglobin Concent 32, Red Cell Distribution Width 14.3, Platelet Count 251, Mean Platelet Volume 10.4, Immature Granulocyte % (Auto) 0, Neutrophils (%) (Auto) 82H, Lymphocytes (%) (Auto) 13, Monocytes (%) (Auto) 4, Eosinophils (%) (Auto) 0, Basophils (%) (Auto) 0, Neutrophils # (Auto) 6.4, Lymphocytes # (Auto) 1.0, Monocytes # (Auto) 0.3, Eosinophils # (Auto) 0.0, Basophils # (Auto) 0.0, Immature Granulocyte # (Auto) 0.0, Sodium Level 138, Potassium Level 4.0, Chloride Level 104, Carbon Dioxide Level 24, Anion Gap 10, Blood Urea Nitrogen 19H, Creatinine 0.75, Estimat Glomerular Filtration Rate > 60, BUN/Creatinine Ratio 25, Glucose Level 97, Calcium Level 8.7, Corrected Calcium 9.0, Total Bilirubin 0.3, Aspartate Amino Transf (AST/SGOT) 16, Alanine Aminotransferase (ALT/SGPT) 11, Alkaline Phosphatase 87, Total Protein 6.1L, Albumin 3.6 Microbiology 04/30/20 Blood Culture - Preliminary, Resulted No growth 04/30/20 Influenza Types A,B Antigen (GABRIELA) - Final, Complete Home Meds Active Reported Vitamin B-6 (Pyridoxine HCl) 50 Mg Tablet 50 Mg PO DAILY Vitamin B-12 (Cyanocobalamin (Vitamin B-12)) 2,500 Mcg Tab.subl 2,500 Mcg SL DAILY Miralax (Polyethylene Glycol 3350) 17 Gm Powd.pack 17 Gm PO DAILY Loperamide (Loperamide HCl) 2 Mg Capsule 2 Mg PO QID PRN Amantadine (Amantadine HCl) 100 Mg Capsule 100 Mg PO BID LAST FILLED 02-24-2020 #60/30 DAY SUPPLY [Glycopyrrolate] 1 Tab 1 Mg PO BID Rasagiline Mesylate 0.5 Mg Tablet 0.5 Mg PO DAILY Hydrocodone-Acetamin 5-325 mg (Hydrocodone/Acetaminophen) 1 Each Tablet 1 Each PO Q6H PRN Bumetanide 1 Mg Tablet 1 Mg PO DAILY LAST FILLED 03-02-2020 #30/30 DAY SUPPLY Topiramate 25 Mg Tablet 25 Mg PO DAILY Tramadol HCl 50 Mg Tablet 50-100 Mg PO QID PRN Simvastatin 20 Mg Tablet 20 Mg PO HS Fluoxetine HCl 20 Mg Tablet 20 Mg PO DAILY Lisinopril 10 Mg Tablet 10 Mg PO DAILY Ropinirole HCl 3 Mg Tablet 3 Mg PO TID Carbidopa-Levodopa 25-250 Tab (Carbidopa/Levodopa) 1 Each Tablet 2 Each PO QID TAKES 2 (25/250MG) TABS Assessment/Pt Instructions [facility] 1 week Discharge Planning: <30 minutes discharge planning Discharge Instructions Pneumonia Vaccine Order Indica: Yes Discharge Physical Examination Vital Signs Vital Signs Date Time Temp Pulse Resp B/P (MAP) Pulse Ox O2 Delivery O2 Flow Rate FiO2 05/04/20 08:00 Room Air 05/03/20 23:29 36.4 81 18 169/82 (940) 10 General Appearance: No Apparent Distress, WD/WN, Chronically ill, Thin Respiratory: Lungs Clear Cardiovascular: Regular Rate, Rhythm Neurologic/Psychiatric: Alert, Oriented x3, No Motor/Sensory Deficits, Normal Mood/Affect Allergies: Coded Allergies: codeine (Verified Allergy, Unknown, 04/30/20) egg (Verified Allergy, Unknown, 04/30/20) Discharge Summary Date of Admission Apr 30, 2020 at 12:59 Date of Discharge Discharge Date: May 04, 2020 Discharge Diagnosis Assessment: COVID-19 Weakness Cachexia Frail status Confusion Neutropenia Plan: Monitor O2 Increase PO intake Ambulate PT OT IRF 05/03/20: PT OT DC tomorrow with Clinical Quality Measures DVT/VTE Risk/Contraindication: Risk Factor Score Per Nursin RFS Level Per Nursing on Admit: 2=Moderate BRENDA DE LA VEGA DO May 04, 2020 08:50
--- NOTE | 2020-05-04 08:50 | D/C HH Face to Face Order ---
D/C Face to Face Orders Reconcile Patient Problems Problems Reviewed?: Yes Instructions for Patient Via [facility], Patient Instructions/FollowUp: [facility] 1 week Physician to follow Patient: [facility] Discharge Diet for Home: No Restrictions Patient Problems: PD COVID-19 Debility Patient Data-Allergies,Ht & Wt Patient Allergies: Coded Allergies: codeine (Verified Allergy, Unknown, 04/30/20) egg (Verified Allergy, Unknown, 04/30/20) Home Health Need/Face to Face Date of Face to Face: May 04, 2020 Clinical Findings: Generalized weakness and fatigue, Immune-compromised, Instability, Muscle weakness I have seen Pt [id number]: Yes Discharged To: Home Diagnosis/Conditions: PD COVID-19 Debility Patient is Homebound due to: CognItive deficits, Marci fall risk due to instabi lty, Muscle weakness Homebound Status Due to the above stated illness, injury or surgical procedure (medical condition or diagnosis) and associated clinical findings, the patient is homebound because of his/her inability to leave home except with aid of a supportive device and/or person AND leaving the home requires a considerable and taxing effort or is medically contraindicated. Pt req the following assistanc: Walker Home Health Nursing Orders Home Health Services Order: Nursing Services, Tarring Machine Operator-Evaluate & Treat, Physical Therapy-Evaluate & Treat Certify Stmt I certify that this patient is under my care and that I, a nurse practitioner or a physician; a cafe assistant working with me, had a face to face encounter that - meets the physician face to face encounter requirements with this patient as dated. BRENDA DE LA VEGA DO May 04, 2020 08:50
[2020-05-04] MEDS: RASAGILINE 0.5 MG PO SCH (09:17)
[2020-05-04] MEDS: AMANTADINE 100 MG (SYMMETREL) CAP PO SCH (09:47)
--- NOTE | 2020-05-04 10:43 | Physical Therapy Daily Note ---
PT Daily Note-Current Subjective Patient in recliner pre tx, agrees to PT, has unrated pain in her legs but states it has gotten better with pain meds that nurse gave her. Appearance Patient in recliner post tx with nurse call, phone, tray, all needs met, chair alarm on, legs elevated and on pillow for pressure relief. Mental Status Patient Orientation: Person, Confused Transfers SCALE: Activities may be completed with or without assistive devices. 5-Gsedksdrog-xxprztu completes the activity by him/herself with no assistance from a helper. 5-Set-up or Clean-up Assistance-helper sets up or cleans up; patient completes activity. [place] assists only prior to or following the activity. 4-Supervision or Touching Assistance-helper provides verbal cues and/or touc zandra/steadying and/or contact guard assistance as patient completes activity. Assistance may be provided throughout the activity or intermittently. 3-Partial/Moderate Assistance-helper does LESS THAN HALF the effort. [place] lifts, holds or supports trunk or limbs, but provides less than half the effort. 2-Substantial/Maximal Assistance-helper does MORE THAN HALF the effort. [place] lifts or holds trunk or limbs and provides more than half the effort. 3-Skjxzxnqi-pgqvhj does ALL the effort. Patient does none of the effort to complete the activity. Or, the assistance of 2 or more helpers is required for the patient to complete the activity. If activity was not attempted, code reason: 7-Patient Refused. 9-Not Applicable-not attempted and the patient did not perform the activity before the current illness, exacerbation or injury. 10-Not Attempted due to Environmental Limitations-(lack of equipment, weather restraints, etc.). 88-Not Attempted due to Medical Conditions or Safety Concerns. Sit to Stand (QC): 3 Chair/Sby-zg-Slnll Xfer(QC): 3 Weight Bearing Right Lower Extremity: Right Full Weight Bearing Left Lower Extremity: Left Full Weight Bearing Gait Training Distance: 80' Walk 10 feet (QC): 3 Walk 50 ft with 2 Turns(QC): 3 Gait Persons Needed: 1 Gait Assistive Device: FWW Patient ambulated 80' with a rolling walker with min assist, she needs assist with guiding walker especially when turning, she festinates a little, cues for safety and hand placement when sitting Treatments ambulation Assessment Current Status: Fair Progress improving endurance PT Keyseating Machine Set Up Operator Goals Keyseating Machine Set Up Operator Goals PT Keyseating Machine Set Up Operator Goals Time Frame: May 16, 2020 Roll Left & Right (QC): 6 Sit to Lying (QC): 6 Lying-Sitting on Side/Bed(QC): 6 Sit to Stand (QC): 4 Chair/Itf-ok-Wlhwy Xfer(QC): 4 Walk 10 feet (QC): 4 PT Plan Problem List Problem List: Activity Tolerance, Functional Strength, Safety, Balance, Gait, Transfer, Bed Mobility, ROM Treatment/Plan Treatment Plan: Continue Plan of Care Treatment Plan: Bed Mobility, Concurrent Therapy, Education, Functional Activity Merary, Functional Strength, Gait, Safety, Therapeutic Exercise, Transfers Treatment Duration: May 16, 2020 Frequency: 6 times per week Estimated Hrs Per Day: .25 hour per day Patient and/or Family Agrees t: Yes Safety Risks/Education Patient Education: Gait Training, Transfer Techniques, Correct Positioning, Safety Issues Teaching Recipient: Patient Teaching Methods: Demonstration, Discussion Response to Teaching: Reinforcement Needed Time/GCodes Time In: 0953 Time Out: 1004 Total Billed Treatment Time: 11 Total Billed Treatment 1 visit GT YOHAN FERNANDEZ PT May 04, 2020 10:43
--- NOTE | 2020-05-04 10:47 | NUR ---
CM/SS finalized discharge plan. Plan: The patient will discharge to home today with home health and family support. The patient's and daughter will pick the patient up. Home Health: CM/SS faxed finalized discharge to [facility] and updated clinical. CM/SS called and spoke with Wilda at the facility to notify of discharge. She verbalized understanding. CM/SS contacted the patient's to notify of discharge and plan. He reports that he is thankful she will be coming home today. He verbalized the daughter will continue to stay at the home with them. No further need.
[2020-05-04 11:51] VITALS: BP 155/77
--- NOTE | 2020-05-04 13:38 | ST Dysphagia Evaluation ---
Speech Evaluation-General Medical Diagnosis weakness, confusion, COVID+ Onset Date: Apr 30, 2020 Therapy Diagnosis Therapy Diagnosis: Oropharyngeal Dysphagia Precautions Precautions: Aspiration Precautions/Isolations: Aspiration, Fall Prevention, Standard Precautions Referral Referring Physician: Dr. Hernandez Medical History Pertinent Medical History: HTN, Parkinson's Reviewed History: Yes Social History Current Living Status: Spouse Speech PLF/Current-Dysphagia Prior Level of Function Patient lives in the home with her where she was independent for much of her daily needs. Subjective Patient was pleasant and cooperative with the Bedside Dysphagia Evaluation. Oral Motor Skills Denture Type: Full- Upper & Lower Current Food Consistancy: Dysphagia Soft, Thin Liquids Ability to Follow Directions: Good Oral Expression Ability: No Impairment Voice Voice Phonatory-Based Quality: Weak Voice Pitch: Normal Voice Loudness: Mildly Soft/Quiet Face Facial Symmetry: Symmetrical Oral-Facial Assessment Oral-Facial Dentition: Normal Smile: Normal Lingual Protrusion: Normal Lingual ROM: Normal Pharynx Velopharyngeal Move.: Normal Volitional Dry Swallow: Yes Voluntary Cough: Yes Can Clear Throat Volitionally: Yes Dysphagia Evaluation Consistencies Presented: Regular, Thin Liquid, Mechanical Soft, Pureed Oral phase is within normal range of function for consistencies presented. Pharyngeal phase is within normal range of function for consistencies presented. Dietary Recommendations: Ground Liquid Recommendations: Thin Swallowing Precautions: Alternate Liquids/Solids, Double Swallow, Decreased Celso us 1/2 Tsp, Liquids from Straw, Liquids from Spoon, Supraglottic Swallow, Sitting Upright 90 Degrees, Sitting 90 Degrees 30 Post Intake Dysphagia Evaluation Summary Patient is an 84 y/o female who was admitted to the hospital due to COVID. Patient was reported to have been having difficulty swallowing. Patient was on a Dysphagia III diet level with thin liquids. Patient was given presentations of 1/2 tsp thin liquids x2 and small sips via straw of thin x2 without difficulty. Patient was presented 1/2 tsp of puree, mechanical soft and regular without difficulty. Patient is recommended to continue on her current diet level. This information was provided to her nurse as well as written on the white board in her room. Barriers to Learning None identified Speech-Plan Patient/Family Goals Patient/Family Goals: Patient is to discharge home with her . Treatment Plan Speech Therapy Treatment Plan: Discontinue ST Treatment Duration: May 04, 2020 Frequency: 1 time per week Estimated Hrs Per Day: .25 hour per day Rehab Potential: Fair Barriers to Learning: None identified Pt/Family Agrees to Plan: Yes Safety Risks/Education Teaching Recipient: Patient Teaching Methods: Discussion Response to Teaching: Verbalize Understanding Education Topics Provided: Safety strategies for oral intake, diet level Time Speech Therapy Time In: 08:00 Speech Therapy Time Out: 08:20 Total Billed Time: 20 Billed Treatment Time 1, KAREN FRYE [address] ST May 04, 2020 13:38
== END 2020-05-04 11:53 | disposition home health service (06) ==
LOC: EDUNIT# 10:52 → ER 10:56 → 4TH 12:59
PROVIDERS: ADMIT Internal Medicine; ATTEND Family Medicine
DX: U07.1 COVID-19 (principal); D70.9 Neutropenia, unspecified; I10 Essential (primary) hypertension; G20 Parkinson's disease; G89.29 Other chronic pain; Z79.899 Other long term (current) drug therapy; Z88.5 Allergy status to narcotic agent; Z91.012 Allergy to eggs
CPT/HCPCS: 51702; 70450; 71045; 80048; 80053 ×4; 81000; 83605; 84145; 84439; 84443; 85025 ×5; 87040; 87804; 92526; 92610; 97116; 97162; 99284; U0002; 36415; 87635; G0378